=== PATIENT | male | born 1940 | race African-American/Black ===

== ENCOUNTER 2020-06-30 19:37 | Inpatient (IN) | payer OTHER ==
[~2020-06-30] VITALS: Ht 180.3 cm; Wt 76.1 kg
[2020-06-30 20:40] LABS: Basophils # (auto) 0 10 ^3/uL (0-0.2); Basophils % (auto) 0.4 % (0.0-2.0); Eosinophils # (auto) 0 10 ^3/uL (0-0.8); Eosinophils % (auto) 0.4 % (0.0-7.0); Hematocrit 34.2 % (41.0-53.0); Hemoglobin 11.5 g/dL (13.5-17.5); Lymphocytes % (auto) 24.3 % (10.0-50.0); Mean Corpuscular Hgb Conc. 33.7 g/dL (32.0-36.0); Mean Corpuscular Volume 83.1 fL (80.0-100.0); Monocytes # (auto) 0.4 10 ^3/uL (0-1.3); Monocytes % (auto) 8.7 % (0.0-12.0); Neutrophils # (auto) 2.8 10 ^3/uL (1.6-8.6); Neutrophils % (auto) 66.2 % (37.0-80.0); Nucleated Red Blood Cells % 0.1 %; Platelet Count (auto) 220 10^3/uL (140-450); Red Blood Cells 4.12 10^6/uL (4.5-5.90); Red Cell Distribution Width 16.2 % (11.8-14.3); White Blood Cell 4.2 10^3/uL (4.4-10.8)
[2020-06-30 20:46] LABS: INR 1.03 (0.9-1.15); Partial Thromboplastin Time 34.5 sec (23.0-31.2)
[2020-06-30 20:49] LABS: Albumin 3.2 g/dL (3.4-5.0); Anion Gap 7 (5-15); Blood Alcohol < 3.0 mg/dL (0-5); Calcium 8.1 mg/dL (8.5-10.1); Carbon Dioxide 24 mmol/L (21-32); Chloride 107 mmol/L (98-107); Glucose 106 mg/dL (74-106); Potassium 4.2 mmol/L (3.5-5.1); Sodium 138 mmol/L (136-145)
[2020-06-30 20:52] LABS: Alanine Aminotransferase 25 U/L (16-61); Aspartate Aminotransferase 17 U/L (15-37); BUN/Creatinine Ratio 13.2; Bilirubin, Total 0.4 mg/dL (0.2-1.0); Blood Urea Nitrogen 20 mg/dL (7-18); GFR African American 57 mL/min; GFR Non-African American 47 mL/min; Total Protein 6.8 g/dL (6.4-8.2)
[2020-06-30 20:54] LABS: Alkaline Phosphatase 87 U/L (45-117)
[2020-06-30 21:44] LABS: Urine Bacteria FEW /hpf (None Seen); Urine Blood 1+ /uL (Negative); Urine Mucus FEW (None Seen); Urine Specific Gravity 1.015 (1.001-1.035); Urine WBC 87 /hpf (0 - 3)
[2020-06-30] MEDS ORDERED: cefTRIAXone 1GM/50ML D5W 50 ML IV ONE (23:15)
[2020-06-30] MEDS ORDERED: ENOXAPARIN SOD 80 MG/0.8ML SYRINGE SC ONE (23:15)
[2020-06-30] MEDS ORDERED: HALOPERIDOL LACTATE 5 MG/ML INJ VIAL IM ONE (23:45)
[2020-07-01] MEDS ORDERED: HALOPERIDOL LACTATE 5 MG/ML INJ VIAL ONE (00:30)
[2020-07-01] MEDS ORDERED: MORPHINE SULF INJ 2 MG/ML SYRINGE 1ML IV PRN (00:30)
[2020-07-01] MEDS ORDERED: NITROGLYCERIN 0.4 MG SL TAB SL PRN (00:30)
[2020-07-01] MEDS ORDERED: ACETAMINOPHEN 325 MG TAB PO PRN (00:30)
[2020-07-01] MEDS ORDERED: ONDANSETRON HCL 4 MG/2 ML VIAL IV PRN (00:30)
[2020-07-01] MEDS ORDERED: hydrALAZINE HCL 20 MG/ML VL IV PRN (00:30)
[2020-07-01] MEDS ORDERED: SODIUM CHLORIDE 0.9% 500 ML IV ONE (00:30)
[2020-07-01] MEDS ORDERED: LORazepam 2MG/ML-1ML VIAL IV PRN (00:30)
[2020-07-01] MEDS: SODIUM CHLORIDE 0.9% 1,000 ML IV SCH ×2 (00:59→13:50)
[2020-07-01] MEDS ORDERED: HALOPERIDOL LACTATE 5 MG/ML INJ VIAL IM ONE (01:00)
[2020-07-01] MEDS: ENOXAPARIN SOD 80 MG/0.8ML SYRINGE SC SCH ×2 (09:32→22:29)
[2020-07-01] MEDS: PANTOPRAZOLE 40 MG TAB PO SCH (09:32)
[2020-07-01] MEDS: cefTRIAXone 1GM/50ML D5W 50 ML IV SCH (09:32)
[2020-07-01] MEDS ORDERED: TAMS0.4C36 PO (10:31)
[2020-07-01 11:59] LABS: Basophils # (auto) 0 10 ^3/uL (0-0.2); Basophils % (auto) 1.1 % (0.0-2.0); Eosinophils # (auto) 0 10 ^3/uL (0-0.8); Eosinophils % (auto) 0.7 % (0.0-7.0); Hematocrit 33.7 % (41.0-53.0); Hemoglobin 11.4 g/dL (13.5-17.5); Lymphocytes # (auto) 1.5 10 ^3/uL (0.4-5.4); Lymphocytes % (auto) 34.2 % (10.0-50.0); Mean Corpuscular Hemoglobin 28.3 pg (28.0-32.0); Mean Corpuscular Hgb Conc. 33.8 g/dL (32.0-36.0); Mean Corpuscular Volume 83.7 fL (80.0-100.0); Monocytes # (auto) 0.4 10 ^3/uL (0-1.3); Monocytes % (auto) 10.1 % (0.0-12.0); Neutrophils # (auto) 2.4 10 ^3/uL (1.6-8.6); Neutrophils % (auto) 53.9 % (37.0-80.0); Nucleated Red Blood Cells % 0.1 %; Platelet Count (auto) 213 10^3/uL (140-450); Red Blood Cells 4.02 10^6/uL (4.5-5.90); Red Cell Distribution Width 15.9 % (11.8-14.3); White Blood Cell 4.4 10^3/uL (4.4-10.8)
[2020-07-01 12:16] LABS: Albumin 2.9 g/dL (3.4-5.0); Anion Gap 9 (5-15); Blood Urea Nitrogen 18 mg/dL (7-18); Calcium 8.4 mg/dL (8.5-10.1); Carbon Dioxide 24 mmol/L (21-32); Chloride 109 mmol/L (98-107); Glucose 88 mg/dL (74-106); Magnesium 2.1 mg/dL (1.6-2.6); Potassium 4.1 mmol/L (3.5-5.1); Sodium 142 mmol/L (136-145)
[2020-07-01 12:23] LABS: Alanine Aminotransferase 23 U/L (16-61); Alkaline Phosphatase 79 U/L (45-117); Aspartate Aminotransferase 29 U/L (15-37); BUN/Creatinine Ratio 12.6; Bilirubin, Total 0.4 mg/dL (0.2-1.0); GFR African American 61 mL/min; GFR Non-African American 51 mL/min; Phosphorus 2.1 mg/dL (2.5-4.90); Total Protein 6.5 g/dL (6.4-8.2)
[2020-07-01] MEDS ORDERED: MAGNESIUM SULFATE 1GM/100ML 200 ML IV ONE (17:59)
[2020-07-01] MEDS: MAGNESIUM SULFATE 1GM/100ML 100 ML IV SCH ×2 (18:04→19:04)
[2020-07-01] MEDS: AMIODARONE HCL 200 MG TAB PO SCH (22:29)
[2020-07-01 23:30] VITALS: BP 151/99
[2020-07-02] VITALS (23 sets, daily range): BP systolic 123–160; BP diastolic 48–104
[2020-07-02 05:58] LABS: Basophils # (auto) 0 10 ^3/uL (0-0.2); Basophils % (auto) 0.6 % (0.0-2.0); Eosinophils # (auto) 0 10 ^3/uL (0-0.8); Eosinophils % (auto) 1.2 % (0.0-7.0); Hematocrit 33.1 % (41.0-53.0); Hemoglobin 11.3 g/dL (13.5-17.5); Lymphocytes # (auto) 1.5 10 ^3/uL (0.4-5.4); Lymphocytes % (auto) 39.7 % (10.0-50.0); Mean Corpuscular Hemoglobin 28.3 pg (28.0-32.0); Mean Corpuscular Volume 83.2 fL (80.0-100.0); Monocytes # (auto) 0.5 10 ^3/uL (0-1.3); Monocytes % (auto) 12.4 % (0.0-12.0); Neutrophils # (auto) 1.7 10 ^3/uL (1.6-8.6); Neutrophils % (auto) 46.1 % (37.0-80.0); Platelet Count (auto) 204 10^3/uL (140-450); Red Blood Cells 3.98 10^6/uL (4.5-5.90); Red Cell Distribution Width 15.6 % (11.8-14.3); White Blood Cell 3.8 10^3/uL (4.4-10.8)
[2020-07-02 06:22] LABS: BUN/Creatinine Ratio 12.7; Calcium 8.1 mg/dL (8.5-10.1)
[2020-07-02 06:24] LABS: Bilirubin, Total 0.5 mg/dL (0.2-1.0); Total Protein 6.6 g/dL (6.4-8.2)
[2020-07-02] MEDS: cefTRIAXone 1GM/50ML D5W 50 ML IV SCH (09:26)
[2020-07-02] MEDS: PANTOPRAZOLE 40 MG TAB PO SCH (09:53)
[2020-07-02] MEDS: ENOXAPARIN SOD 80 MG/0.8ML SYRINGE SC SCH ×2 (09:53→20:53)
[2020-07-02] MEDS: AMIODARONE HCL 200 MG TAB PO SCH (10:00)
[2020-07-02] MEDS: SODIUM CHLORIDE 0.9% 1,000 ML IV SCH ×2 (14:24)
[2020-07-03] VITALS (16 sets, daily range): BP systolic 133–161; BP diastolic 57–101
[2020-07-03] MEDS: cefTRIAXone 1GM/50ML D5W 50 ML IV SCH (09:39)
[2020-07-03] MEDS: PANTOPRAZOLE 40 MG TAB PO SCH (09:39)
[2020-07-03] MEDS: ENOXAPARIN SOD 80 MG/0.8ML SYRINGE SC SCH ×2 (09:39→21:51)
[2020-07-03] MEDS ORDERED: AMIODARONE HCL 200 MG TAB PO SCH (10:00)
[2020-07-03 13:26] LABS: Albumin 2.6 g/dL (3.4-5.0); Calcium 8.2 mg/dL (8.5-10.1); Magnesium 2.1 mg/dL (1.6-2.6); Potassium 3.9 mmol/L (3.5-5.1)
[2020-07-03 13:31] LABS: BUN/Creatinine Ratio 12.2; Bilirubin, Total 0.4 mg/dL (0.2-1.0); Total Protein 6.1 g/dL (6.4-8.2)
[2020-07-03] MEDS ORDERED: POTASSIUM CHL 20 Meq TABLET PO ONE (15:00)
[2020-07-04] VITALS (24 sets, daily range): BP systolic 89–154; BP diastolic 31–92
[2020-07-04] MEDS: PANTOPRAZOLE 40 MG TAB PO SCH (09:10)
[2020-07-04] MEDS: cefTRIAXone 1GM/50ML D5W 50 ML IV SCH (09:10)
[2020-07-04] MEDS: ENOXAPARIN SOD 80 MG/0.8ML SYRINGE SC SCH ×2 (09:10→21:52)
[2020-07-04] MEDS: AMIODARONE HCL 200 MG TAB PO SCH (10:00)
[2020-07-04] MEDS ORDERED: ATROPINE SULFATE 1 MG/1 ML VIAL ONE (17:56)
[2020-07-05] VITALS (16 sets, daily range): BP systolic 111–154; BP diastolic 34–92
[2020-07-05] MEDS: cefTRIAXone 1GM/50ML D5W 50 ML IV SCH (08:58)
[2020-07-05] MEDS: PANTOPRAZOLE 40 MG TAB PO SCH (08:59)
[2020-07-05] MEDS: ENOXAPARIN SOD 80 MG/0.8ML SYRINGE SC SCH ×2 (09:00→22:00)
[2020-07-05] MEDS: AMIODARONE HCL 200 MG TAB PO SCH (10:00)
[2020-07-05 11:16] LABS: BUN/Creatinine Ratio 15.1; Calcium 8.7 mg/dL (8.5-10.1); Potassium 3.9 mmol/L (3.5-5.1)
[2020-07-06] VITALS (20 sets, daily range): BP systolic 98–165; BP diastolic 53–88
[2020-07-06] MEDS: cefTRIAXone 1GM/50ML D5W 50 ML IV SCH (09:24)
[2020-07-06 09:54] LABS: INR 1.04 (0.9-1.15); Partial Thromboplastin Time 37.8 sec (23.0-31.2)
[2020-07-06 09:56] LABS: Basophils # (auto) 0 10 ^3/uL (0-0.2); Basophils % (auto) 0.7 % (0.0-2.0); Eosinophils # (auto) 0.1 10 ^3/uL (0-0.8); Eosinophils % (auto) 2.4 % (0.0-7.0); Lymphocytes # (auto) 1.4 10 ^3/uL (0.4-5.4); Lymphocytes % (auto) 40.1 % (10.0-50.0); Mean Corpuscular Hemoglobin 27.8 pg (28.0-32.0); Mean Corpuscular Hgb Conc. 33.2 g/dL (32.0-36.0); Mean Corpuscular Volume 83.5 fL (80.0-100.0); Monocytes # (auto) 0.5 10 ^3/uL (0-1.3); Monocytes % (auto) 13.6 % (0.0-12.0); Neutrophils # (auto) 1.5 10 ^3/uL (1.6-8.6); Neutrophils % (auto) 43.2 % (37.0-80.0); Nucleated Red Blood Cells % 0.1 %; Platelet Count (auto) 247 10^3/uL (140-450); Red Blood Cells 4.67 10^6/uL (4.5-5.90); White Blood Cell 3.5 10^3/uL (4.4-10.8)
[2020-07-06] MEDS: AMIODARONE HCL 200 MG TAB PO SCH (10:00)
[2020-07-06] MEDS: PANTOPRAZOLE 40 MG TAB PO SCH (10:00)
[2020-07-06] MEDS: ENOXAPARIN SOD 80 MG/0.8ML SYRINGE SC SCH ×2 (10:00→22:22)
[2020-07-06 11:24] LABS: Albumin 3.1 g/dL (3.4-5.0); Calcium 8.9 mg/dL (8.5-10.1); Potassium 4.4 mmol/L (3.5-5.1)
[2020-07-06 11:28] LABS: BUN/Creatinine Ratio 14.3; Bilirubin, Total 0.5 mg/dL (0.2-1.0); Total Protein 7.1 g/dL (6.4-8.2)
[2020-07-06] MEDS ORDERED: VANCOMYCIN 1GM/250ML 250 ML IV ONE ×2 (14:30→15:41)
[2020-07-06] MEDS ORDERED: LIDOCAINE 2%HCL (LOCAL ANESTH.) INJ 20ML MDV ONE (14:55)
[2020-07-06] MEDS ORDERED: VANCOMYCIN HCL 1000 MG VL ONE (15:41)
[2020-07-06] MEDS ORDERED: MIDAZOLAM HCL 1MG/1ML-2 ML VIAL ONE (15:41)
[2020-07-06] MEDS ORDERED: fentaNYL CITRATE 100 MCG/2 ML VL ONE (15:41)
[2020-07-06] MEDS ORDERED: ACETAMINOPHEN 325 MG TAB PO PRN (16:15)
[2020-07-06] MEDS ORDERED: HYDROcodone-ACET 5/325MG TAB PO PRN (16:15)
[2020-07-07 05:41] LABS: Calcium 8.9 mg/dL (8.5-10.1); Potassium 4.5 mmol/L (3.5-5.1)
[2020-07-07 05:42] LABS: BUN/Creatinine Ratio 17.7
[2020-07-07] MEDS: VANCOMYCIN 1GM/250ML 250 ML IV SCH ×2 (07:00→15:41)
[2020-07-07 08:00] VITALS: BP 167/87
[2020-07-07] MEDS: cefTRIAXone 1GM/50ML D5W 50 ML IV SCH (09:46)
[2020-07-07] MEDS: PANTOPRAZOLE 40 MG TAB PO SCH (09:47)
[2020-07-07] MEDS: AMIODARONE HCL 200 MG TAB PO SCH (09:47)
[2020-07-07] MEDS: ENOXAPARIN SOD 80 MG/0.8ML SYRINGE SC SCH (09:47)
[2020-07-07 12:00] VITALS: BP 110/55
[2020-07-07] MEDS: APIXABAN 5 MG TAB PO SCH (21:13)
[2020-07-07 22:00] VITALS: BP 140/95
[2020-07-08 05:00] VITALS: BP 156/94
[2020-07-08 07:14] LABS: Basophils # (auto) 0 10 ^3/uL (0-0.2); Basophils % (auto) 0.8 % (0.0-2.0); Eosinophils # (auto) 0 10 ^3/uL (0-0.8); Eosinophils % (auto) 0.6 % (0.0-7.0); Hematocrit 39.1 % (41.0-53.0); Hemoglobin 13.3 g/dL (13.5-17.5); Lymphocytes # (auto) 1.6 10 ^3/uL (0.4-5.4); Mean Corpuscular Hemoglobin 28.2 pg (28.0-32.0); Mean Corpuscular Volume 83.1 fL (80.0-100.0); Monocytes # (auto) 0.5 10 ^3/uL (0-1.3); Neutrophils # (auto) 2.7 10 ^3/uL (1.6-8.6); Neutrophils % (auto) 55.6 % (37.0-80.0); Nucleated Red Blood Cells % 0.1 %; Platelet Count (auto) 261 10^3/uL (140-450); Red Blood Cells 4.71 10^6/uL (4.5-5.90); Red Cell Distribution Width 15.7 % (11.8-14.3); White Blood Cell 4.8 10^3/uL (4.4-10.8)
[2020-07-08 07:57] LABS: BUN/Creatinine Ratio 15.4; Calcium 8.8 mg/dL (8.5-10.1); Potassium 4.2 mmol/L (3.5-5.1)
[2020-07-08] MEDS: cefTRIAXone 1GM/50ML D5W 50 ML IV SCH (08:14)
[2020-07-08 09:00] VITALS: BP 153/118
[2020-07-08] MEDS: APIXABAN 5 MG TAB PO SCH ×2 (09:28→22:05)
[2020-07-08] MEDS: AMIODARONE HCL 200 MG TAB PO SCH (09:28)
[2020-07-08] MEDS: PANTOPRAZOLE 40 MG TAB PO SCH (09:28)
[2020-07-08 13:00] VITALS: BP 153/83
[2020-07-08] MEDS ORDERED: AMIO200T33 PO (13:57)
[2020-07-08 16:23] VITALS: BP 153/83
[2020-07-08 17:00] VITALS: BP 127/83
[2020-07-08 22:00] VITALS: BP 140/79
[2020-07-09 05:00] VITALS: BP 166/98
[2020-07-09 09:00] VITALS: BP 164/97
[2020-07-09] MEDS: PANTOPRAZOLE 40 MG TAB PO SCH (09:45)
[2020-07-09] MEDS: AMIODARONE HCL 200 MG TAB PO SCH (09:45)
[2020-07-09] MEDS: APIXABAN 5 MG TAB PO SCH (09:45)
[2020-07-09 12:44] VITALS: BP 151/81
[2020-07-09 16:33] VITALS: BP 131/61
[2020-07-14] MEDS ORDERED: APIXABAN 5 MG TAB PO SCH (22:00)
== END 2020-07-09 20:14 | disposition home health service (06) | DRG 242 ==
LOC: EDBD 19:37 → ER 19:37 → TELE 19:38 → DOU IN ICU 07-01 23:00 → TELE-WESTW 07-07 16:29
PROVIDERS: ADMIT Nurse Practitioner; ATTEND Internal Medicine Nephrology
PROC: 0JH606Z Insertion of Pacemaker, Dual Chamber into Chest Subcutaneous Tissue and Fascia, Open Approach (ICD-10-PCS; principal; 2020-07-06)
PROC: 02HK3JZ Insertion of Pacemaker Lead into Right Ventricle, Percutaneous Approach (ICD-10-PCS; 2020-07-06)
PROC: 02H63JZ Insertion of Pacemaker Lead into Right Atrium, Percutaneous Approach (ICD-10-PCS; 2020-07-06)
DX: I49.5 Sick sinus syndrome (principal); N17.0 Acute kidney failure with tubular necrosis; I82.413 Acute embolism and thrombosis of femoral vein, bilateral; G93.40 Encephalopathy, unspecified; N39.0 Urinary tract infection, site not specified; E44.0 Moderate protein-calorie malnutrition; I47.2 Ventricular tachycardia; R62.7 Adult failure to thrive; D64.9 Anemia, unspecified; I12.9 Hypertensive chronic kidney disease with stage 1 through stage 4 chronic kidney disease, or unspecified chronic kidney disease; N18.31 Chronic kidney disease, stage 3a; N40.0 Benign prostatic hyperplasia without lower urinary tract symptoms; I48.91 Unspecified atrial fibrillation; Z86.73 Personal history of transient ischemic attack (TIA), and cerebral infarction without residual deficits; Z68.23 Body mass index [BMI] 23.0-23.9, adult; Z20.822 Contact with and (suspected) exposure to COVID-19
CPT/HCPCS: 33208; 36415; 70450; 71045; 78582; 80048; 80053; 80320; 81001; 83605; 83735; 84100; 84484; 85025; 85610; 85730; 87040; 87081; 87086; 87426; 93005; 93306; 93970; 96365; 96372; 97116; 97530; 99152; 99153; C1785; G0378; J0461; J0696; J2250

== ENCOUNTER 2020-11-19 18:06 | Inpatient (IN) | payer OTHER ==
[~2020-11-19] VITALS: Ht 188 cm; Wt 86.8 kg
[~2020-11-19 18:06] MED LIST: AMIO200T33 PO; TAMS0.4C36 PO
[2020-11-19 19:14] LABS: Basophils # (auto) 0 10 ^3/uL (0-0.2); Basophils % (auto) 0.7 % (0.0-2.0); Eosinophils # (auto) 0 10 ^3/uL (0-0.8); Eosinophils % (auto) 0.3 % (0.0-7.0); Hematocrit 37.5 % (41.0-53.0); Hemoglobin 12.5 g/dL (13.5-17.5); Lymphocytes # (auto) 0.8 10 ^3/uL (0.4-5.4); Lymphocytes % (auto) 13.5 % (10.0-50.0); Mean Corpuscular Hemoglobin 27.7 pg (28.0-32.0); Mean Corpuscular Hgb Conc. 33.4 g/dL (32.0-36.0); Monocytes # (auto) 0.6 10 ^3/uL (0-1.3); Monocytes % (auto) 9.9 % (0.0-12.0); Neutrophils # (auto) 4.3 10 ^3/uL (1.6-8.6); Neutrophils % (auto) 75.6 % (37.0-80.0); Nucleated Red Blood Cells % 0.1 %; Red Blood Cells 4.51 10^6/uL (4.5-5.90); Red Cell Distribution Width 15.2 % (11.8-14.3); White Blood Cell 5.7 10^3/uL (4.4-10.8)
[2020-11-19 19:35] LABS: Albumin 2.7 g/dL (3.4-5.0); Anion Gap 18 (5-15); BUN/Creatinine Ratio 19.3; Blood Urea Nitrogen 54 mg/dL (7-18); Calcium 8.3 mg/dL (8.5-10.1); Carbon Dioxide 18 mmol/L (21-32); Chloride 111 mmol/L (98-107); GFR African American 28 mL/min; GFR Non-African American 23 mL/min; Glucose 80 mg/dL (74-106); Potassium 3.7 mmol/L (3.5-5.1); Sodium 147 mmol/L (136-145)
[2020-11-19 19:40] LABS: Alanine Aminotransferase 16 U/L (16-61); Alkaline Phosphatase 70 U/L (45-117); Aspartate Aminotransferase 26 U/L (15-37); Total Protein 7.2 g/dL (6.4-8.2)
[2020-11-19] MEDS ORDERED: HYDROcodone-ACET 5/325MG TAB PO PRN (23:30)
[2020-11-19] MEDS ORDERED: ACETAMINOPHEN 325 MG TAB PO PRN (23:30)
[2020-11-19] MEDS ORDERED: ACETAMINOPHEN 500 MG TAB PO PRN (23:30)
[2020-11-19] MEDS ORDERED: MORPHINE SULFATE INJECTION 2 MG/ML SYRG IV PRN (23:30)
[2020-11-19] MEDS ORDERED: ONDANSETRON HCL 4 MG/2 ML VIAL IV PRN (23:30)
[2020-11-19] MEDS ORDERED: NITROGLYCERIN 0.4 MG SL TAB SL PRN (23:30)
[2020-11-19] MEDS ORDERED: DOCUSATE SOD 100 MG CAP PO PRN (23:30)
[2020-11-20] MEDS ORDERED: ALBUMIN 25% 50 ML IV ONE
[2020-11-20 00:12] VITALS: BP 118/90
[2020-11-20 00:42] LABS: Urine Bacteria MANY /hpf (None Seen); Urine Blood 1+ /uL (Negative); Urine Mucus FEW (None Seen); Urine Specific Gravity 1.015 (1.001-1.035); Urine WBC 299 /hpf (0 - 3); Urine WBC Clumps PRESENT /hpf (None Seen)
[2020-11-20] MEDS: FREE WATER PO SCH ×6 (02:02→23:12)
[2020-11-20 04:27] LABS: Basophils # (auto) 0 10 ^3/uL (0-0.2); Basophils % (auto) 0.3 % (0.0-2.0); Eosinophils # (auto) 0 10 ^3/uL (0-0.8); Eosinophils % (auto) 0.8 % (0.0-7.0); Hematocrit 38.2 % (41.0-53.0); Hemoglobin 12.9 g/dL (13.5-17.5); Lymphocytes # (auto) 0.9 10 ^3/uL (0.4-5.4); Lymphocytes % (auto) 17.2 % (10.0-50.0); Mean Corpuscular Hemoglobin 27.7 pg (28.0-32.0); Mean Corpuscular Hgb Conc. 33.9 g/dL (32.0-36.0); Mean Corpuscular Volume 81.9 fL (80.0-100.0); Monocytes # (auto) 0.5 10 ^3/uL (0-1.3); Monocytes % (auto) 9.8 % (0.0-12.0); Neutrophils # (auto) 3.7 10 ^3/uL (1.6-8.6); Neutrophils % (auto) 71.9 % (37.0-80.0); Red Blood Cells 4.67 10^6/uL (4.5-5.90); Red Cell Distribution Width 15.1 % (11.8-14.3); White Blood Cell 5.1 10^3/uL (4.4-10.8)
[2020-11-20 04:44] LABS: Albumin 2.8 g/dL (3.4-5.0); Calcium 8.5 mg/dL (8.5-10.1); Potassium 3.8 mmol/L (3.5-5.1)
[2020-11-20 04:46] LABS: Total Protein 7.2 g/dL (6.4-8.2)
[2020-11-20] MEDS: ALBUTEROL SULF HFA 90MCG INH 200DOSE IN PRN (07:09)
[2020-11-20] MEDS: BUDESONIDE (INHALATION) 180 MCG IH IN SCH ×2 (07:09→22:00)
[2020-11-20 09:00] VITALS: BP 111/79
[2020-11-20 10:00] VITALS: BP 111/79
[2020-11-20] MEDS: DexAMETHasone SOD PHOS 10MG/1ML VIAL INJ IV SCH (10:26)
[2020-11-20] MEDS: FAMOTIDINE (10MG/ML) 2ML VL IV SCH (10:26)
[2020-11-20] MEDS: DOXYCYCLINE 100MG/250ML 250 ML IV SCH ×2 (10:26→23:12)
[2020-11-20] MEDS: MULTIPLE VITAMIN TAB PO SCH (10:27)
[2020-11-20] MEDS: ZINC SULFATE 220mg CAP or TAB PO SCH (10:27)
[2020-11-20] MEDS: AMIODARONE HCL 200 MG TAB PO SCH ×2 (10:27→23:13)
[2020-11-20] MEDS: ASCORBIC ACID 1,000 MG TAB PO SCH (10:27)
[2020-11-20] MEDS: CHOLECALCIFEROL (VITD3) 2,000 UNIT CAP/TAB PO SCH (10:28)
[2020-11-20] MEDS: HEPARIN SODIUM (PORCINE) 5000 UNITS/ML 1ML VIAL SC SCH ×2 (10:47→23:14)
[2020-11-20 13:00] VITALS: BP 116/87
[2020-11-20] MEDS: SOD CHL 0.45% 1,000 ML IV SCH (13:00)
[2020-11-20] MEDS ORDERED: LACTULOSE 20Gm/30ML SOLN PO PRN (16:15)
[2020-11-20 17:00] VITALS: BP 122/83
[2020-11-20] MEDS: TAMSULOSIN HYDROCHLORIDE 0.4 MG CAP PO SCH (17:44)
[2020-11-20 22:00] VITALS: BP 133/99
[2020-11-20] MEDS: DOCUSATE SOD 100 MG CAP PO SCH (23:12)
[2020-11-21] MEDS: ALBUTEROL SULF HFA 90MCG INH 200DOSE IN PRN ×3 (01:16→21:31)
[2020-11-21] MEDS: FREE WATER PO SCH ×3 (02:00→10:11)
[2020-11-21 05:00] VITALS: BP 128/100
[2020-11-21] MEDS: SOD CHL 0.45% 1,000 ML IV SCH ×2 (05:28→15:40)
[2020-11-21] MEDS: BUDESONIDE (INHALATION) 180 MCG IH IN SCH ×2 (07:22→21:31)
[2020-11-21 07:42] LABS: Basophils # (auto) 0 10 ^3/uL (0-0.2); Basophils % (auto) 0.3 % (0.0-2.0); Eosinophils # (auto) 0 10 ^3/uL (0-0.8); Eosinophils % (auto) 0.2 % (0.0-7.0); Hematocrit 38.3 % (41.0-53.0); Hemoglobin 12.9 g/dL (13.5-17.5); Lymphocytes # (auto) 0.6 10 ^3/uL (0.4-5.4); Lymphocytes % (auto) 8.4 % (10.0-50.0); Mean Corpuscular Hemoglobin 28.2 pg (28.0-32.0); Mean Corpuscular Hgb Conc. 33.7 g/dL (32.0-36.0); Mean Corpuscular Volume 83.5 fL (80.0-100.0); Monocytes # (auto) 0.4 10 ^3/uL (0-1.3); Monocytes % (auto) 5.6 % (0.0-12.0); Neutrophils # (auto) 6.2 10 ^3/uL (1.6-8.6); Neutrophils % (auto) 85.5 % (37.0-80.0); Nucleated Red Blood Cells % 0.2 %; Red Blood Cells 4.58 10^6/uL (4.5-5.90); Red Cell Distribution Width 15.1 % (11.8-14.3); White Blood Cell 7.3 10^3/uL (4.4-10.8)
[2020-11-21 07:57] LABS: Albumin 2.6 g/dL (3.4-5.0); Calcium 8.7 mg/dL (8.5-10.1); Magnesium 2.5 mg/dL (1.6-2.6); Potassium 3.7 mmol/L (3.5-5.1)
[2020-11-21 08:00] LABS: Bilirubin, Total 0.8 mg/dL (0.2-1.0); Total Protein 7.1 g/dL (6.4-8.2)
[2020-11-21 08:04] LABS: INR 1.09 (0.9-1.15)
[2020-11-21 08:10] LABS: CRP High Sensitivity 6.98 mg/dL (< 0.3)
[2020-11-21 08:26] LABS: BUN/Creatinine Ratio 19.1
[2020-11-21 09:00] VITALS: BP 112/75
[2020-11-21] MEDS: DOXYCYCLINE 100MG/250ML 250 ML IV SCH ×2 (10:11→22:08)
[2020-11-21] MEDS: FAMOTIDINE (10MG/ML) 2ML VL IV SCH (10:11)
[2020-11-21] MEDS: DexAMETHasone SOD PHOS 10MG/1ML VIAL INJ IV SCH (10:11)
[2020-11-21] MEDS: DOCUSATE SOD 100 MG CAP PO SCH ×2 (10:12→22:09)
[2020-11-21] MEDS: ASCORBIC ACID 1,000 MG TAB PO SCH (10:12)
[2020-11-21] MEDS: AMIODARONE HCL 200 MG TAB PO SCH ×2 (10:12→22:09)
[2020-11-21] MEDS: MULTIPLE VITAMIN TAB PO SCH (10:12)
[2020-11-21] MEDS: ZINC SULFATE 220mg CAP or TAB PO SCH (10:12)
[2020-11-21] MEDS: CHOLECALCIFEROL (VITD3) 2,000 UNIT CAP/TAB PO SCH (10:13)
[2020-11-21 13:13] VITALS: BP 100/44
[2020-11-21 17:00] VITALS: BP 128/85
[2020-11-21] MEDS: TAMSULOSIN HYDROCHLORIDE 0.4 MG CAP PO SCH (17:48)
[2020-11-21 21:12] LABS: Cholesterol 132 mg/dL (< 200)
[2020-11-21 21:14] LABS: HDL Cholesterol 34 mg/dL (40-59); LDL Cholesterol 85 mg/dL (< 100); Triglycerides 91 mg/dL (< 150)
[2020-11-21] MEDS ORDERED: LOSA-69 PO (21:27)
[2020-11-21] MEDS ORDERED: ATOR80TA PO (21:27)
[2020-11-21] MEDS ORDERED: CLOP75TA28 PO (21:27)
[2020-11-21 22:00] VITALS: BP 120/87
[2020-11-21] MEDS: ATORVASTATIN 20 MG TAB PO SCH (22:10)
[2020-11-22] MEDS: SOD CHL 0.45% 1,000 ML IV SCH ×2 (04:03→18:20)
[2020-11-22 05:15] VITALS: BP 147/93
[2020-11-22 06:51] LABS: Basophils # (auto) 0 10 ^3/uL (0-0.2); Basophils % (auto) 0.2 % (0.0-2.0); Eosinophils # (auto) 0 10 ^3/uL (0-0.8); Hematocrit 34.6 % (41.0-53.0); Hemoglobin 11.7 g/dL (13.5-17.5); Lymphocytes # (auto) 0.6 10 ^3/uL (0.4-5.4); Lymphocytes % (auto) 6.9 % (10.0-50.0); Mean Corpuscular Hemoglobin 27.6 pg (28.0-32.0); Mean Corpuscular Volume 81.2 fL (80.0-100.0); Monocytes # (auto) 0.4 10 ^3/uL (0-1.3); Monocytes % (auto) 5.1 % (0.0-12.0); Neutrophils # (auto) 7.8 10 ^3/uL (1.6-8.6); Neutrophils % (auto) 87.8 % (37.0-80.0); Nucleated Red Blood Cells % 0.1 %; Red Blood Cells 4.26 10^6/uL (4.5-5.90); White Blood Cell 8.8 10^3/uL (4.4-10.8)
[2020-11-22] MEDS: BUDESONIDE (INHALATION) 180 MCG IH IN SCH ×2 (07:04→22:00)
[2020-11-22] MEDS: ALBUTEROL SULF HFA 90MCG INH 200DOSE IN PRN ×2 (07:04→22:40)
[2020-11-22 07:17] LABS: Chloride 109 mmol/L (98-107); Potassium 3.8 mmol/L (3.5-5.1); Sodium 138 mmol/L (136-145)
[2020-11-22 07:22] LABS: Anion Gap 8 (5-15); Blood Urea Nitrogen 31 mg/dL (7-18); Calcium 7.8 mg/dL (8.5-10.1); Carbon Dioxide 21 mmol/L (21-32); GFR African American 62 mL/min; GFR Non-African American 51 mL/min; Glucose 147 mg/dL (74-106)
[2020-11-22 09:00] VITALS: BP 112/71
[2020-11-22] MEDS: DexAMETHasone SOD PHOS 10MG/1ML VIAL INJ IV SCH (10:11)
[2020-11-22] MEDS: DOXYCYCLINE 100MG/250ML 250 ML IV SCH ×2 (10:11→21:30)
[2020-11-22] MEDS: ZINC SULFATE 220mg CAP or TAB PO SCH (10:12)
[2020-11-22] MEDS: AMIODARONE HCL 200 MG TAB PO SCH ×2 (10:12→21:31)
[2020-11-22] MEDS: DOCUSATE SOD 100 MG CAP PO SCH ×2 (10:12→21:31)
[2020-11-22] MEDS: MULTIPLE VITAMIN TAB PO SCH (10:13)
[2020-11-22] MEDS: ASCORBIC ACID 1,000 MG TAB PO SCH (10:13)
[2020-11-22] MEDS: CHOLECALCIFEROL (VITD3) 2,000 UNIT CAP/TAB PO SCH (10:13)
[2020-11-22] MEDS: ASPirin-EC 81 mg tab PO SCH (10:13)
[2020-11-22 13:00] VITALS: BP 137/75
[2020-11-22 17:27] VITALS: BP 123/75
[2020-11-22] MEDS: TAMSULOSIN HYDROCHLORIDE 0.4 MG CAP PO SCH (18:02)
[2020-11-22] MEDS: ATORVASTATIN 20 MG TAB PO SCH (21:32)
[2020-11-22 22:00] VITALS: BP 116/84
[2020-11-23 01:32] VITALS: BP 116/84
[2020-11-23 05:00] VITALS: BP 139/87
[2020-11-23 06:51] LABS: Basophils # (auto) 0 10 ^3/uL (0-0.2); Eosinophils # (auto) 0 10 ^3/uL (0-0.8); Hematocrit 32.8 % (41.0-53.0); Hemoglobin 11.5 g/dL (13.5-17.5); Lymphocytes # (auto) 0.7 10 ^3/uL (0.4-5.4); Lymphocytes % (auto) 9.3 % (10.0-50.0); Mean Corpuscular Hemoglobin 28.5 pg (28.0-32.0); Mean Corpuscular Volume 81.3 fL (80.0-100.0); Monocytes # (auto) 0.5 10 ^3/uL (0-1.3); Monocytes % (auto) 6.1 % (0.0-12.0); Neutrophils # (auto) 6.6 10 ^3/uL (1.6-8.6); Neutrophils % (auto) 84.6 % (37.0-80.0); Nucleated Red Blood Cells % 0.1 %; Red Blood Cells 4.03 10^6/uL (4.5-5.90); Red Cell Distribution Width 14.6 % (11.8-14.3); White Blood Cell 7.8 10^3/uL (4.4-10.8)
[2020-11-23 07:08] LABS: Albumin 2.1 g/dL (3.4-5.0); Calcium 7.8 mg/dL (8.5-10.1); Potassium 3.4 mmol/L (3.5-5.1)
[2020-11-23 07:12] LABS: Bilirubin, Total 0.4 mg/dL (0.2-1.0); Total Protein 5.8 g/dL (6.4-8.2)
[2020-11-23 07:16] LABS: BUN/Creatinine Ratio 22.3
[2020-11-23 07:21] LABS: CRP High Sensitivity 1.34 mg/dL (< 0.3)
[2020-11-23 09:00] VITALS: BP 105/73
[2020-11-23] MEDS: ALBUTEROL SULF HFA 90MCG INH 200DOSE IN PRN ×2 (09:30→20:06)
[2020-11-23] MEDS: BUDESONIDE (INHALATION) 180 MCG IH IN SCH ×2 (09:30→20:06)
[2020-11-23] MEDS: DOXYCYCLINE 100MG/250ML 250 ML IV SCH (09:32)
[2020-11-23] MEDS: DexAMETHasone SOD PHOS 10MG/1ML VIAL INJ IV SCH (09:32)
[2020-11-23] MEDS: ZINC SULFATE 220mg CAP or TAB PO SCH (09:32)
[2020-11-23] MEDS: AMIODARONE HCL 200 MG TAB PO SCH ×2 (09:33→22:13)
[2020-11-23] MEDS: FINASTERIDE 5 MG TAB PO SCH (09:33)
[2020-11-23] MEDS: MULTIPLE VITAMIN TAB PO SCH (09:33)
[2020-11-23] MEDS: CHOLECALCIFEROL (VITD3) 2,000 UNIT CAP/TAB PO SCH (09:33)
[2020-11-23] MEDS: ASPirin-EC 81 mg tab PO SCH (09:33)
[2020-11-23] MEDS: DOCUSATE SOD 100 MG CAP PO SCH ×2 (09:33→22:13)
[2020-11-23] MEDS: ASCORBIC ACID 1,000 MG TAB PO SCH (09:33)
[2020-11-23 10:04] LABS: Folate (Folic Acid) 10.27 ng/mL (5.38-24)
[2020-11-23] MEDS ORDERED: POTASSIUM CHL 10 Meq TABLET PO ONE (11:45)
[2020-11-23 13:00] VITALS: BP 110/78
[2020-11-23] MEDS: SOD CHL 0.45% 1,000 ML IV SCH ×2 (14:33→22:12)
[2020-11-23] MEDS: TAMSULOSIN HYDROCHLORIDE 0.4 MG CAP PO SCH (16:57)
[2020-11-23 17:25] VITALS: BP 125/72
[2020-11-23] MEDS ORDERED: CYANOCOBALAMIN (B-12) 1000 MCG/1 ML VIAL IM ONE (19:45)
[2020-11-23 22:00] VITALS: BP 114/57
[2020-11-23] MEDS: DOXYCYCLINE 100 MG TAB/CAP PO SCH (22:12)
[2020-11-23] MEDS: ATORVASTATIN 20 MG TAB PO SCH (22:13)
[2020-11-24 05:00] VITALS: BP 134/91
[2020-11-24 07:00] LABS: Calcium 7.7 mg/dL (8.5-10.1); Potassium 3.9 mmol/L (3.5-5.1)
[2020-11-24] MEDS: BUDESONIDE (INHALATION) 180 MCG IH IN SCH ×2 (08:07→19:41)
[2020-11-24] MEDS: ALBUTEROL SULF HFA 90MCG INH 200DOSE IN PRN ×2 (08:07→19:41)
[2020-11-24 09:00] VITALS: BP 124/70
[2020-11-24] MEDS: FINASTERIDE 5 MG TAB PO SCH (09:29)
[2020-11-24] MEDS: DexAMETHasone SOD PHOS 10MG/1ML VIAL INJ IV SCH (09:29)
[2020-11-24] MEDS: ASCORBIC ACID 1,000 MG TAB PO SCH (09:30)
[2020-11-24] MEDS: ZINC SULFATE 220mg CAP or TAB PO SCH (09:30)
[2020-11-24] MEDS: AMIODARONE HCL 200 MG TAB PO SCH ×2 (09:30→21:56)
[2020-11-24] MEDS: DOCUSATE SOD 100 MG CAP PO SCH ×2 (09:31→22:02)
[2020-11-24] MEDS: MULTIPLE VITAMIN TAB PO SCH (09:31)
[2020-11-24] MEDS: ASPirin-EC 81 mg tab PO SCH (09:31)
[2020-11-24] MEDS: DOXYCYCLINE 100 MG TAB/CAP PO SCH ×2 (09:31→21:56)
[2020-11-24] MEDS: CHOLECALCIFEROL (VITD3) 2,000 UNIT CAP/TAB PO SCH (09:31)
[2020-11-24] MEDS: CYANOCOBALAMIN 500 MCG TAB PO SCH (09:31)
[2020-11-24] MEDS: SOD CHL 0.45% 1,000 ML IV SCH ×2 (13:21→23:55)
[2020-11-24 17:00] VITALS: BP 110/71
[2020-11-24] MEDS: TAMSULOSIN HYDROCHLORIDE 0.4 MG CAP PO SCH (18:00)
[2020-11-24 20:00] VITALS: BP 131/75
[2020-11-24] MEDS: ATORVASTATIN 20 MG TAB PO SCH (21:57)
[2020-11-24 22:00] VITALS: BP 131/75
[2020-11-25 05:00] VITALS: BP 129/85
[2020-11-25 08:37] VITALS: BP 141/87
[2020-11-25] MEDS: DexAMETHasone SOD PHOS 10MG/1ML VIAL INJ IV SCH (10:21)
[2020-11-25] MEDS: ZINC SULFATE 220mg CAP or TAB PO SCH (10:22)
[2020-11-25] MEDS: MULTIPLE VITAMIN TAB PO SCH (10:22)
[2020-11-25] MEDS: CHOLECALCIFEROL (VITD3) 2,000 UNIT CAP/TAB PO SCH (10:22)
[2020-11-25] MEDS: DOCUSATE SOD 100 MG CAP PO SCH ×2 (10:22→21:57)
[2020-11-25] MEDS: FINASTERIDE 5 MG TAB PO SCH (10:22)
[2020-11-25] MEDS: CYANOCOBALAMIN 500 MCG TAB PO SCH (10:22)
[2020-11-25] MEDS: AMIODARONE HCL 200 MG TAB PO SCH ×2 (10:23→21:56)
[2020-11-25] MEDS: ASPirin-EC 81 mg tab PO SCH (10:23)
[2020-11-25] MEDS: DOXYCYCLINE 100 MG TAB/CAP PO SCH ×2 (10:23→21:56)
[2020-11-25] MEDS: ASCORBIC ACID 1,000 MG TAB PO SCH (10:23)
[2020-11-25] MEDS: BUDESONIDE (INHALATION) 180 MCG IH IN SCH ×2 (12:21→20:36)
[2020-11-25] MEDS: ALBUTEROL SULF HFA 90MCG INH 200DOSE IN PRN ×2 (12:21→20:36)
[2020-11-25 13:00] VITALS: BP 125/71
[2020-11-25 16:55] VITALS: BP 118/71
[2020-11-25] MEDS: TAMSULOSIN HYDROCHLORIDE 0.4 MG CAP PO SCH (17:57)
[2020-11-25 20:00] VITALS: BP 109/64
[2020-11-25] MEDS: ATORVASTATIN 20 MG TAB PO SCH (21:57)
[2020-11-25 22:00] VITALS: BP 109/64
[2020-11-26 05:00] VITALS: BP 142/75
[2020-11-26] MEDS: ALBUTEROL SULF HFA 90MCG INH 200DOSE IN PRN ×2 (07:55→21:54)
[2020-11-26] MEDS: BUDESONIDE (INHALATION) 180 MCG IH IN SCH ×2 (07:55→21:54)
[2020-11-26 08:39] VITALS: BP 125/71
[2020-11-26] MEDS: DOCUSATE SOD 100 MG CAP PO SCH ×2 (09:29→22:09)
[2020-11-26] MEDS: DexAMETHasone 4 MG TAB PO SCH (09:29)
[2020-11-26] MEDS: FINASTERIDE 5 MG TAB PO SCH (09:29)
[2020-11-26] MEDS: ASCORBIC ACID 1,000 MG TAB PO SCH (09:30)
[2020-11-26] MEDS: ZINC SULFATE 220mg CAP or TAB PO SCH (09:30)
[2020-11-26] MEDS: ASPirin-EC 81 mg tab PO SCH (09:30)
[2020-11-26] MEDS: CYANOCOBALAMIN 500 MCG TAB PO SCH (09:30)
[2020-11-26] MEDS: AMIODARONE HCL 200 MG TAB PO SCH ×2 (09:30→22:10)
[2020-11-26] MEDS: CHOLECALCIFEROL (VITD3) 2,000 UNIT CAP/TAB PO SCH (09:30)
[2020-11-26] MEDS: MULTIPLE VITAMIN TAB PO SCH (09:30)
[2020-11-26] MEDS: DOXYCYCLINE 100 MG TAB/CAP PO SCH ×2 (09:30→22:10)
[2020-11-26 13:00] VITALS: BP 125/77
[2020-11-26 17:27] VITALS: BP 115/65
[2020-11-26] MEDS: TAMSULOSIN HYDROCHLORIDE 0.4 MG CAP PO SCH (18:12)
[2020-11-26 22:00] VITALS: BP 135/75
[2020-11-26] MEDS: ATORVASTATIN 20 MG TAB PO SCH (22:10)
[2020-11-27 04:30] VITALS: BP 148/83
[2020-11-27] MEDS: ALBUTEROL SULF HFA 90MCG INH 200DOSE IN PRN ×3 (06:56→22:34)
[2020-11-27] MEDS: BUDESONIDE (INHALATION) 180 MCG IH IN SCH ×3 (06:56→22:34)
[2020-11-27 09:00] VITALS: BP 103/64
[2020-11-27] MEDS: CHOLECALCIFEROL (VITD3) 2,000 UNIT CAP/TAB PO SCH (10:00)
[2020-11-27] MEDS: ZINC SULFATE 220mg CAP or TAB PO SCH (10:41)
[2020-11-27] MEDS: DOCUSATE SOD 100 MG CAP PO SCH ×2 (10:41→21:30)
[2020-11-27] MEDS: DexAMETHasone 4 MG TAB PO SCH (10:42)
[2020-11-27] MEDS: AMIODARONE HCL 200 MG TAB PO SCH ×2 (10:42→21:30)
[2020-11-27] MEDS: ASPirin-EC 81 mg tab PO SCH (10:43)
[2020-11-27] MEDS: MULTIPLE VITAMIN TAB PO SCH (10:43)
[2020-11-27] MEDS: CYANOCOBALAMIN 500 MCG TAB PO SCH (10:44)
[2020-11-27] MEDS: ASCORBIC ACID 1,000 MG TAB PO SCH (10:44)
[2020-11-27] MEDS: DOXYCYCLINE 100 MG TAB/CAP PO SCH ×2 (10:44→21:31)
[2020-11-27] MEDS: FINASTERIDE 5 MG TAB PO SCH (10:44)
[2020-11-27 13:00] VITALS: BP 119/74
[2020-11-27] MEDS ORDERED: LORazepam 2MG/ML-1ML VIAL IV ONE (16:00)
[2020-11-27 17:00] VITALS: BP 119/67
[2020-11-27] MEDS: TAMSULOSIN HYDROCHLORIDE 0.4 MG CAP PO SCH (17:12)
[2020-11-27] MEDS: ATORVASTATIN 20 MG TAB PO SCH (21:30)
[2020-11-27 22:00] VITALS: BP 126/76
[2020-11-28 04:30] VITALS: BP 144/86
[2020-11-28] MEDS: ALBUTEROL SULF HFA 90MCG INH 200DOSE IN PRN (07:47)
[2020-11-28 08:43] VITALS: BP 136/80
[2020-11-28] MEDS: ZINC SULFATE 220mg CAP or TAB PO SCH (09:48)
[2020-11-28] MEDS: AMIODARONE HCL 200 MG TAB PO SCH (09:48)
[2020-11-28] MEDS: DOCUSATE SOD 100 MG CAP PO SCH (09:48)
[2020-11-28] MEDS: ASCORBIC ACID 1,000 MG TAB PO SCH (09:49)
[2020-11-28] MEDS: CYANOCOBALAMIN 500 MCG TAB PO SCH (09:49)
[2020-11-28] MEDS: FINASTERIDE 5 MG TAB PO SCH (09:49)
[2020-11-28] MEDS: ASPirin-EC 81 mg tab PO SCH (09:49)
[2020-11-28] MEDS: MULTIPLE VITAMIN TAB PO SCH (09:49)
[2020-11-28] MEDS: CHOLECALCIFEROL (VITD3) 2,000 UNIT CAP/TAB PO SCH (09:50)
[2020-11-28] MEDS ORDERED: DexAMETHasone 4 MG TAB PO SCH (10:00)
[2020-11-28 13:00] VITALS: BP 121/69
[2020-11-28 16:06] VITALS: BP 146/67
== END 2020-11-28 16:09 | disposition hospice, home (50) | DRG 177 ==
LOC: ER 18:06 → EDBD 18:06 → EDUNIT# 18:06 → TELE 23:30 → TELE-EAST 11-20 09:30 → EAST 11-23 11:24
PROVIDERS: ADMIT Nurse Practitioner Family; ATTEND Internal Medicine
DX: U07.1 COVID-19 (principal); N17.0 Acute kidney failure with tubular necrosis; J12.82 Pneumonia due to coronavirus disease 2019; G92 Toxic encephalopathy; N39.0 Urinary tract infection, site not specified; E87.0 Hyperosmolality and hypernatremia; E87.1 Hypo-osmolality and hyponatremia; I48.20 Chronic atrial fibrillation, unspecified; E88.09 Other disorders of plasma-protein metabolism, not elsewhere classified; E55.9 Vitamin D deficiency, unspecified; Z96.642 Presence of left artificial hip joint; I12.9 Hypertensive chronic kidney disease with stage 1 through stage 4 chronic kidney disease, or unspecified chronic kidney disease; N18.31 Chronic kidney disease, stage 3a; I49.5 Sick sinus syndrome; N40.0 Benign prostatic hyperplasia without lower urinary tract symptoms; D64.9 Anemia, unspecified; F03.90 Unspecified dementia, unspecified severity, without behavioral disturbance, psychotic disturbance, mood disturbance, and anxiety; I48.0 Paroxysmal atrial fibrillation; N20.0 Calculus of kidney; Z79.82 Long term (current) use of aspirin; Z79.899 Other long term (current) drug therapy; Z86.73 Personal history of transient ischemic attack (TIA), and cerebral infarction without residual deficits; Z95.0 Presence of cardiac pacemaker
CPT/HCPCS: 36415; 70450; 71045; 74176; 76775; 80048; 80053; 80061; 81001; 82306; 82570; 82607; 82728; 82746; 83036; 83605; 83615; 83735; 83970; 84100; 84154; 84156; 84300; 84443; 84484; 85025; 85379; 85610; 86141; 87426; 93005; 93970; 94640; 95819; 96365; 97110; 97163; 97530; G0378; J1100; J3490

== ENCOUNTER 2022-07-01 13:30 | Inpatient (IN) | payer OTHER ==
[~2022-07-01] VITALS: Ht 185.4 cm; Wt 79.6 kg
[~2022-07-01 13:30] MED LIST changes: +ATOR80TA PO; +CLOP75TA28 PO; +LOSA-69 PO
[2022-07-01] MEDS ORDERED: ACETAMINOPHEN 500 MG TAB PO ONE (14:45)
[2022-07-01 15:02] LABS: Basophils # (auto) 0.1 10 ^3/uL (0-0.2); Basophils % (auto) 0.8 % (0.0-2.0); Eosinophils # (auto) 0.1 10 ^3/uL (0-0.8); Eosinophils % (auto) 1.3 % (0.0-7.0); Hematocrit 38.7 % (41.0-53.0); Hemoglobin 13.2 g/dL (13.5-17.5); Lymphocytes # (auto) 2.2 10 ^3/uL (0.4-5.4); Lymphocytes % (auto) 26.4 % (10.0-50.0); Mean Corpuscular Hemoglobin 28.7 pg (28.0-32.0); Mean Corpuscular Volume 84.6 fL (80.0-100.0); Monocytes # (auto) 0.8 10 ^3/uL (0-1.3); Monocytes % (auto) 9.5 % (0.0-12.0); Neutrophils # (auto) 5.1 10 ^3/uL (1.6-8.6); Nucleated Red Blood Cells % 0.1 %; Red Blood Cells 4.58 10^6/uL (4.5-5.90); Red Cell Distribution Width 13.9 % (11.8-14.3); White Blood Cell 8.2 10^3/uL (4.4-10.8)
[2022-07-01 15:19] LABS: Albumin 3.3 g/dL (3.4-5.0); Calcium 8.9 mg/dL (8.5-10.1); Potassium 4.1 mmol/L (3.5-5.1)
[2022-07-01 15:28] LABS: BUN/Creatinine Ratio 8.3 (10.0-20.0); Bilirubin, Total 0.4 mg/dL (0.2-1.0); Total Protein 6.9 g/dL (6.4-8.2)
[2022-07-02 02:21] LABS: Urine Bacteria NONE SEEN /hpf (None Seen); Urine Blood Negative /uL (Negative); Urine Specific Gravity 1.015 (1.001-1.035); Urine WBC 420 /hpf (0 - 3); Urine WBC Clumps PRESENT /hpf (None Seen)
[2022-07-02] MEDS ORDERED: cefTRIAXone 1GM/50ML D5W 50 ML IV ONE (03:15)
[2022-07-02 12:54] LABS: Basophils # (auto) 0.1 10 ^3/uL (0-0.2); Basophils % (auto) 0.8 % (0.0-2.0); Eosinophils # (auto) 0.1 10 ^3/uL (0-0.8); Eosinophils % (auto) 1.6 % (0.0-7.0); Hematocrit 38.2 % (41.0-53.0); Hemoglobin 12.9 g/dL (13.5-17.5); Lymphocytes # (auto) 1.5 10 ^3/uL (0.4-5.4); Lymphocytes % (auto) 19.7 % (10.0-50.0); Mean Corpuscular Hemoglobin 28.8 pg (28.0-32.0); Mean Corpuscular Hgb Conc. 33.8 g/dL (32.0-36.0); Mean Corpuscular Volume 85.1 fL (80.0-100.0); Monocytes # (auto) 0.6 10 ^3/uL (0-1.3); Monocytes % (auto) 7.6 % (0.0-12.0); Neutrophils # (auto) 5.5 10 ^3/uL (1.6-8.6); Neutrophils % (auto) 70.3 % (37.0-80.0); Nucleated Red Blood Cells % 0.1 %; Red Blood Cells 4.49 10^6/uL (4.5-5.90); Red Cell Distribution Width 13.8 % (11.8-14.3); White Blood Cell 7.8 10^3/uL (4.4-10.8)
[2022-07-02 13:10] LABS: Calcium 8.8 mg/dL (8.5-10.1); Potassium 3.9 mmol/L (3.5-5.1)
[2022-07-02 13:14] LABS: BUN/Creatinine Ratio 9.3 (10.0-20.0); Bilirubin, Total 0.4 mg/dL (0.2-1.0)
[2022-07-02] MEDS ORDERED: ONDANSETRON HCL 4 MG/2 ML VIAL IV PRN (13:45)
[2022-07-02] MEDS ORDERED: MORPHINE SULFATE INJ 2 MG/ml SYRG IV PRN (13:45)
[2022-07-02] MEDS ORDERED: NITROGLYCERIN 0.4 MG SL TAB SL PRN (13:45)
[2022-07-02] MEDS ORDERED: ACETAMINOPHEN 325 MG TAB PO PRN (13:45)
[2022-07-02] MEDS ORDERED: DOCUSATE SOD 100 MG CAP PO PRN (13:45)
[2022-07-02] MEDS ORDERED: SODIUM CHLORIDE 0.9% 500 ML IV ONE (13:45)
[2022-07-02] MEDS: SODIUM CHLORIDE 0.9% 1,000 ML IV SCH (13:45)
[2022-07-02] MEDS ORDERED: TAMSULOSIN HYDROCHLORIDE 0.4 MG CAP PO ONE (14:00)
[2022-07-02] MEDS: ATORVASTATIN 20 MG TAB PO SCH (22:00)
[2022-07-02 23:00] VITALS: BP 137/87
[2022-07-03 05:00] VITALS: BP 146/92
[2022-07-03] MEDS: SODIUM CHLORIDE 0.9% 1,000 ML IV SCH ×2 (06:22→23:05)
[2022-07-03 08:42] VITALS: BP 132/82
[2022-07-03] MEDS: TAMSULOSIN HYDROCHLORIDE 0.4 MG CAP PO SCH (09:29)
[2022-07-03] MEDS: cefTRIAXone 1GM/50ML D5W 50 ML IV SCH (09:29)
[2022-07-03] MEDS: PANTOPRAZOLE 40 MG/10 ML VIAL INJ IV SCH (09:29)
[2022-07-03] MEDS: LOSARTAN POTASSIUM 50 MG TAB PO SCH (09:30)
[2022-07-03] MEDS: CLOPIDOGREL BISULFATE 75 MG TAB PO SCH (09:39)
[2022-07-03] MEDS ORDERED: LIDOCAINE 2% JELLY 11ml (GLYDO) UR ONE (12:15)
[2022-07-03 12:55] VITALS: BP 149/61
[2022-07-03 14:15] LABS: Basophils # (auto) 0 10 ^3/uL (0-0.2); Basophils % (auto) 0.5 % (0.0-2.0); Eosinophils # (auto) 0.1 10 ^3/uL (0-0.8); Eosinophils % (auto) 1.2 % (0.0-7.0); Hemoglobin 12.6 g/dL (13.5-17.5); Lymphocytes # (auto) 1.3 10 ^3/uL (0.4-5.4); Lymphocytes % (auto) 16.6 % (10.0-50.0); Mean Corpuscular Hemoglobin 28.7 pg (28.0-32.0); Mean Corpuscular Hgb Conc. 34.2 g/dL (32.0-36.0); Mean Corpuscular Volume 83.8 fL (80.0-100.0); Monocytes # (auto) 0.6 10 ^3/uL (0-1.3); Monocytes % (auto) 7.3 % (0.0-12.0); Neutrophils # (auto) 6.1 10 ^3/uL (1.6-8.6); Neutrophils % (auto) 74.4 % (37.0-80.0); Red Blood Cells 4.41 10^6/uL (4.5-5.90); Red Cell Distribution Width 13.6 % (11.8-14.3); White Blood Cell 8.1 10^3/uL (4.4-10.8)
[2022-07-03 14:35] LABS: Albumin 3.1 g/dL (3.4-5.0); Calcium 8.6 mg/dL (8.5-10.1)
[2022-07-03 14:38] LABS: BUN/Creatinine Ratio 9.7 (10.0-20.0); Bilirubin, Total 0.4 mg/dL (0.2-1.0); Total Protein 6.9 g/dL (6.4-8.2)
[2022-07-03 16:27] LABS: Urine Bacteria NONE SEEN /hpf (None Seen); Urine Blood Negative /uL (Negative); Urine Specific Gravity 1.011 (1.001-1.035); Urine WBC 62 /hpf (0 - 3)
[2022-07-03 17:00] VITALS: BP 145/89
[2022-07-03] MEDS: ATORVASTATIN 20 MG TAB PO SCH (21:33)
[2022-07-03 22:00] VITALS: BP 145/99
[2022-07-04] MEDS: HYDROcodone-ACET 5/325MG TAB PO PRN ×2 (04:36→19:24)
[2022-07-04 05:00] VITALS: BP 156/93
[2022-07-04 09:04] VITALS: BP 190/109
[2022-07-04] MEDS: cefTRIAXone 1GM/50ML D5W 50 ML IV SCH (10:02)
[2022-07-04] MEDS: PANTOPRAZOLE 40 MG/10 ML VIAL INJ IV SCH (10:02)
[2022-07-04] MEDS: LOSARTAN POTASSIUM 50 MG TAB PO SCH (11:20)
[2022-07-04] MEDS: TAMSULOSIN HYDROCHLORIDE 0.4 MG CAP PO SCH (11:20)
[2022-07-04] MEDS: FINASTERIDE 5 MG TAB PO SCH (11:21)
[2022-07-04] MEDS: CLOPIDOGREL BISULFATE 75 MG TAB PO SCH (11:21)
[2022-07-04 12:35] VITALS: BP 153/78
[2022-07-04] MEDS: SODIUM CHLORIDE 0.9% 1,000 ML IV SCH (16:01)
[2022-07-04 16:30] VITALS: BP 149/76
[2022-07-04] MEDS: ATORVASTATIN 20 MG TAB PO SCH (21:41)
[2022-07-04 22:42] VITALS: BP 169/90
[2022-07-05] MEDS: HYDROcodone-ACET 5/325MG TAB PO PRN ×2 (06:04→21:54)
[2022-07-05] MEDS: LOSARTAN POTASSIUM 50 MG TAB PO SCH (06:07)
[2022-07-05 09:00] VITALS: BP 129/76
[2022-07-05] MEDS: CLOPIDOGREL BISULFATE 75 MG TAB PO SCH (09:09)
[2022-07-05] MEDS: TAMSULOSIN HYDROCHLORIDE 0.4 MG CAP PO SCH (09:09)
[2022-07-05] MEDS: FINASTERIDE 5 MG TAB PO SCH (09:09)
[2022-07-05] MEDS: cefTRIAXone 1GM/50ML D5W 50 ML IV SCH (11:08)
[2022-07-05] MEDS: PANTOPRAZOLE 40 MG/10 ML VIAL INJ IV SCH (11:09)
[2022-07-05 13:00] VITALS: BP 121/79
[2022-07-05 16:53] VITALS: BP 129/71
[2022-07-05 20:00] VITALS: BP 141/80
[2022-07-05] MEDS: ATORVASTATIN 20 MG TAB PO SCH (21:54)
[2022-07-05 22:00] VITALS: BP 141/80
[2022-07-06] MEDS: HYDROcodone-ACET 5/325MG TAB PO PRN (02:07)
[2022-07-06 05:00] VITALS: BP 122/66
[2022-07-06] MEDS: SODIUM CHLORIDE 0.9% 1,000 ML IV SCH ×2 (07:38→17:45)
[2022-07-06 09:00] VITALS: BP 160/89
[2022-07-06] MEDS: PANTOPRAZOLE 40 MG/10 ML VIAL INJ IV SCH (09:01)
[2022-07-06] MEDS: cefTRIAXone 1GM/50ML D5W 50 ML IV SCH (09:01)
[2022-07-06] MEDS: TAMSULOSIN HYDROCHLORIDE 0.4 MG CAP PO SCH (09:02)
[2022-07-06] MEDS: LOSARTAN POTASSIUM 50 MG TAB PO SCH (09:02)
[2022-07-06] MEDS: CLOPIDOGREL BISULFATE 75 MG TAB PO SCH (09:03)
[2022-07-06] MEDS: FINASTERIDE 5 MG TAB PO SCH (09:03)
[2022-07-06 13:00] VITALS: BP 134/80
[2022-07-06 17:00] VITALS: BP 167/89
[2022-07-06] MEDS: ATORVASTATIN 20 MG TAB PO SCH (21:53)
[2022-07-06 22:00] VITALS: BP 151/80
[2022-07-07 04:30] VITALS: BP 138/89
[2022-07-07 09:00] VITALS: BP 148/86
[2022-07-07] MEDS: cefTRIAXone 1GM/50ML D5W 50 ML IV SCH (09:15)
[2022-07-07] MEDS: TAMSULOSIN HYDROCHLORIDE 0.4 MG CAP PO SCH (09:32)
[2022-07-07] MEDS: PANTOPRAZOLE 40 MG/10 ML VIAL INJ IV SCH (09:32)
[2022-07-07] MEDS: LOSARTAN POTASSIUM 50 MG TAB PO SCH (09:32)
[2022-07-07] MEDS: FINASTERIDE 5 MG TAB PO SCH (09:32)
[2022-07-07] MEDS: CLOPIDOGREL BISULFATE 75 MG TAB PO SCH (09:32)
[2022-07-07] MEDS ORDERED: CIPR-173 PO (10:06)
[2022-07-07] MEDS ORDERED: TAM04C PO (10:11)
[2022-07-07] MEDS: SODIUM CHLORIDE 0.9% 1,000 ML IV SCH (10:52)
[2022-07-07 13:00] VITALS: BP 152/88
[2022-07-07 16:28] VITALS: BP 148/86
[2022-07-07] MEDS ORDERED: CIPROFLOXACIN HYDROCHLORIDE 250 MG TAB PO SCH (22:00)
== END 2022-07-07 17:50 | disposition home or self-care (01) | DRG 690 ==
LOC: EDBD 13:30 → ER 13:30 → TELE 07-02 13:50 → TELE-WESTW 07-02 22:56 → WEST WING 07-06 14:44
PROVIDERS: ADMIT Nurse Practitioner Family; ATTEND Family Medicine
DX: N39.0 Urinary tract infection, site not specified (principal); E78.00 Pure hypercholesterolemia, unspecified; F03.C0 Unspecified dementia, severe, without behavioral disturbance, psychotic disturbance, mood disturbance, and anxiety; Z20.822 Contact with and (suspected) exposure to COVID-19; I10 Essential (primary) hypertension; Z79.02 Long term (current) use of antithrombotics/antiplatelets; Z86.73 Personal history of transient ischemic attack (TIA), and cerebral infarction without residual deficits; Z95.0 Presence of cardiac pacemaker; N40.1 Benign prostatic hyperplasia with lower urinary tract symptoms
CPT/HCPCS: 36415; 74176; 80053; 81001; 83605; 83690; 84154; 84484; 85025; 87040; 87081; 87086; 87426; 93005; 96365; C9113; G0378; J0696

== ENCOUNTER 2023-01-09 14:33 | Inpatient (IN) | payer OTHER ==
[~2023-01-09] VITALS: Ht 180.3 cm; Wt 83.2 kg
[~2023-01-09 14:33] MED LIST changes: +CIPR-173 PO; -LOSA-69 PO; +LOSA50TA46 PO; +TAMS-35 PO
[2023-01-09 15:38] LABS: Alanine Aminotransferase 36 U/L (7-40); Albumin 3.6 g/dL (3.2-4.8); Alkaline Phosphatase 67 U/L (46-116); Anion Gap 8 (5-15); Aspartate Aminotransferase 171 U/L (13-40); BUN/Creatinine Ratio 12.6 (10.0-20.0); Bilirubin, Total 1.6 mg/dL (0.2-1.0); Blood Urea Nitrogen 21 mg/dL (9-23); Calcium 8.9 mg/dL (8.5-10.1); Carbon Dioxide 26 mmol/L (20-30); Chloride 106 mmol/L (98-107); Glucose 118 mg/dL (74-106); Potassium 4.1 mmol/L (3.5-5.1); Sodium 140 mmol/L (136-145); Total Protein 5.9 g/dL (5.7-8.2)
[2023-01-09 15:50] LABS: Basophils # (auto) 0 10 ^3/uL (0-0.2); Basophils % (auto) 0.1 % (0.0-2.0); Eosinophils # (auto) 0 10 ^3/uL (0-0.8); Hematocrit 35.5 % (41.0-53.0); Lymphocytes # (auto) 0.8 10 ^3/uL (0.4-5.4); Lymphocytes % (auto) 5.7 % (10.0-50.0); Mean Corpuscular Hemoglobin 28.5 pg (28.0-32.0); Mean Corpuscular Hgb Conc. 33.7 g/dL (32.0-36.0); Mean Corpuscular Volume 84.5 fL (80.0-100.0); Monocytes # (auto) 1.2 10 ^3/uL (0-1.3); Monocytes % (auto) 8.8 % (0.0-12.0); Neutrophils % (auto) 85.4 % (37.0-80.0); Nucleated Red Blood Cells % 0.1 %; Red Cell Distribution Width 15.7 % (11.8-14.3); White Blood Cell 14.1 10^3/uL (4.4-10.8)
[2023-01-09] MEDS ORDERED: SODIUM CHLORIDE 0.9% 500 ML IV ONE (17:15)
[2023-01-09] MEDS ORDERED: ASPirin 81 mg TAB PO ONE (17:15)
[2023-01-09] MEDS ORDERED: CLOPIDOGREL 300 MG TAB PO ONE (17:15)
[2023-01-09] MEDS ORDERED: ACETAMINOPHEN 325 MG TAB PO PRN (18:00)
[2023-01-09] MEDS ORDERED: NITROGLYCERIN 0.4 MG SL TAB SL PRN (18:00)
[2023-01-09] MEDS ORDERED: cefTRIAXone 1GM/50ML D5W 50 ML IV ONE (18:00)
[2023-01-09] MEDS ORDERED: HEPARIN SODIUM (PORCINE) 5000 UNITS/ML 1ML VIAL IV ONE (18:05)
[2023-01-09] MEDS: SODIUM CHLORIDE 0.9% 1,000 ML IV SCH (18:09)
[2023-01-09 18:23] LABS: INR 1.28 (0.9-1.15); Partial Thromboplastin Time 40.4 SEC (24.5-34.5); Prothrombin Time 13.2 sec (9.3-11.8)
[2023-01-09 18:31] LABS: Triglycerides 55 mg/dL (< 150)
[2023-01-09 18:32] LABS: LDL Cholesterol 74 mg/dL (< 100)
[2023-01-09 18:33] LABS: Cholesterol 127 mg/dL (< 200); HDL Cholesterol 40 mg/dL (40-59)
[2023-01-09 19:02] LABS: Basophils # (auto) 0 10 ^3/uL (0-0.2); Basophils % (auto) 0.1 % (0.0-2.0); Eosinophils # (auto) 0 10 ^3/uL (0-0.8); Hemoglobin 11.7 g/dL (13.5-17.5); Lymphocytes # (auto) 0.9 10 ^3/uL (0.4-5.4); Lymphocytes % (auto) 6.5 % (10.0-50.0); Mean Corpuscular Hemoglobin 28.1 pg (28.0-32.0); Mean Corpuscular Hgb Conc. 33.4 g/dL (32.0-36.0); Mean Corpuscular Volume 84.2 fL (80.0-100.0); Monocytes # (auto) 1.4 10 ^3/uL (0-1.3); Monocytes % (auto) 9.8 % (0.0-12.0); Neutrophils # (auto) 12.1 10 ^3/uL (1.6-8.6); Neutrophils % (auto) 83.6 % (37.0-80.0); Red Blood Cells 4.15 10^6/uL (4.5-5.90); Red Cell Distribution Width 15.5 % (11.8-14.3); White Blood Cell 14.5 10^3/uL (4.4-10.8)
[2023-01-09 19:20] VITALS: PULSE 75; RESP 16; O2SAT 93
[2023-01-09] MEDS: HEPARIN DRIP/D5W 100UNITS/ML 250 ML IV SCH (19:41)
[2023-01-09] MEDS: PHENYLEPHRINE IV 250 ML IV SCH (20:40)
[2023-01-10] VITALS (90 sets, daily range): BP systolic 72–114; BP diastolic 36–76; PULSE 68–112; RESP 13–26; TEMP 98.2–98.7; O2SAT 86–97
[2023-01-10 01:12] LABS: Urine Bacteria NONE SEEN /hpf (None Seen); Urine Blood TRACE /uL (Negative); Urine Clarity Clear (Clear); Urine Color Yellow (Yellow); Urine Hyaline Cast FEW /lpf (0 - 2); Urine Protein, UAD TRACE (Negative); Urine Specific Gravity 1.017 (1.001-1.035); Urine WBC 5 /hpf (0 - 3)
[2023-01-10] MEDS: PHENYLEPHRINE IV 250 ML IV SCH ×4 (02:41→09:22)
[2023-01-10] MEDS ORDERED: SODIUM CHLORIDE 0.9% 500 ML IV ONE ×2 (03:00→10:30)
[2023-01-10] MEDS ORDERED: SERT-206 PO (03:48)
[2023-01-10] MEDS: SODIUM CHLORIDE 0.9% 1,000 ML IV SCH ×4 (06:48→23:22)
[2023-01-10 08:23] LABS: Basophils # (auto) 0 10 ^3/uL (0-0.2); Basophils % (auto) 0.2 % (0.0-2.0); Eosinophils # (auto) 0 10 ^3/uL (0-0.8); Hematocrit 38.8 % (41.0-53.0); Hemoglobin 12.7 g/dL (13.5-17.5); Lymphocytes # (auto) 0.9 10 ^3/uL (0.4-5.4); Lymphocytes % (auto) 4.9 % (10.0-50.0); Mean Corpuscular Hemoglobin 28.2 pg (28.0-32.0); Mean Corpuscular Hgb Conc. 32.8 g/dL (32.0-36.0); Mean Corpuscular Volume 86.2 fL (80.0-100.0); Monocytes # (auto) 1.4 10 ^3/uL (0-1.3); Monocytes % (auto) 7.5 % (0.0-12.0); Neutrophils # (auto) 15.9 10 ^3/uL (1.6-8.6); Neutrophils % (auto) 87.4 % (37.0-80.0); Red Cell Distribution Width 16.2 % (11.8-14.3); White Blood Cell 18.2 10^3/uL (4.4-10.8)
[2023-01-10] MEDS: cefTRIAXone 1GM/50ML D5W 50 ML IV SCH (08:29)
[2023-01-10 08:38] LABS: INR 1.18 (0.9-1.15); Partial Thromboplastin Time 34.7 SEC (24.5-34.5); Prothrombin Time 12.3 sec (9.3-11.8)
[2023-01-10 08:54] LABS: Alanine Aminotransferase 30 U/L (7-40); Albumin 3.4 g/dL (3.2-4.8); Alkaline Phosphatase 67 U/L (46-116); Anion Gap 11 (5-15); Aspartate Aminotransferase 126 U/L (13-40); BUN/Creatinine Ratio 13.7 (10.0-20.0); Bilirubin, Total 0.7 mg/dL (0.2-1.0); Blood Urea Nitrogen 19 mg/dL (9-23); Carbon Dioxide 19 mmol/L (20-30); Chloride 112 mmol/L (98-107); Glucose 115 mg/dL (74-106); Potassium 3.9 mmol/L (3.5-5.1); Sodium 142 mmol/L (136-145); Total Protein 5.9 g/dL (5.7-8.2)
[2023-01-10] MEDS: AMIODARONE HCL 200 MG TAB PO SCH (09:21)
[2023-01-10] MEDS: ASPirin 81 mg TAB PO SCH (09:21)
[2023-01-10] MEDS: NOREPINEPHRINE 8 MG/250ML KIT 250 ML IV SCH (09:30)
[2023-01-10] MEDS ORDERED: ASPirin 81 mg TAB PO SCH (10:00)
[2023-01-10] MEDS ORDERED: DOPamine 1600MCG/ML D5W 250 ML IV SCH (10:30)
[2023-01-10] MEDS ORDERED: LIDOCAINE 1% (LOCAL ANESTH.) PF 5ml SDV ID ONE (11:30)
[2023-01-10] MEDS: DOPamine 1600MCG/ML D5W 250 ML IV SCH ×2 (12:45→20:33)
[2023-01-10] MEDS ORDERED: ONDANSETRON HCL 4 MG/2 ML VIAL IV PRN (13:30)
[2023-01-10] MEDS: EPINEPHrine HCL 250 ML IV SCH (14:05)
[2023-01-10] MEDS: PHENYLEPHRINE INJ 80 MG in SODIUM CHL 0.9% 242 ML IV SCH ×2 (15:19→23:21)
[2023-01-10] MEDS: MORPHINE SULFATE INJ 2 MG/ml SYRG IV PRN ×2 (16:02→17:53)
[2023-01-10 16:19] LABS: INR 1.16 (0.9-1.15); Partial Thromboplastin Time 59.1 SEC (24.5-34.5); Prothrombin Time 12.1 sec (9.3-11.8)
[2023-01-10] MEDS ORDERED: BUMETANIDE 2.5mg/10ml (0.25 mg/ml) INJ IV ONE (16:30)
[2023-01-10] MEDS: HEPARIN DRIP/D5W 100UNITS/ML 250 ML IV SCH ×2 (17:15→23:20)
[2023-01-10] MEDS: SODIUM CHLOR 0.9% PF (SALINE LOCK) 10ML VIAL/SYR IV SCH (21:41)
[2023-01-10] MEDS: ATORVASTATIN 20 MG TAB PO SCH (21:41)
[2023-01-10 22:35] LABS: INR 1.27 (0.9-1.15); Prothrombin Time 13.1 sec (9.3-11.8)
[2023-01-10 22:49] LABS: Partial Thromboplastin Time 85.7 SEC (24.5-34.5)
[2023-01-11] VITALS (96 sets, daily range): BP systolic 78–122; BP diastolic 44–76; PULSE 86–115; RESP 13–25; TEMP 98.3–99.3; O2SAT 90–100
[2023-01-11] MEDS: NOREPINEPHRINE 8 MG/250ML KIT 250 ML IV SCH (01:55)
[2023-01-11] MEDS: DOPamine 1600MCG/ML D5W 250 ML IV SCH ×2 (04:51→16:37)
[2023-01-11 06:32] LABS: Basophils # (auto) 0 10 ^3/uL (0-0.2); Basophils % (auto) 0.1 % (0.0-2.0); Eosinophils # (auto) 0 10 ^3/uL (0-0.8); Hemoglobin 9.8 g/dL (13.5-17.5); Lymphocytes # (auto) 0.7 10 ^3/uL (0.4-5.4); Lymphocytes % (auto) 6.8 % (10.0-50.0); Mean Corpuscular Hemoglobin 28.7 pg (28.0-32.0); Mean Corpuscular Hgb Conc. 33.9 g/dL (32.0-36.0); Mean Corpuscular Volume 84.7 fL (80.0-100.0); Monocytes # (auto) 0.9 10 ^3/uL (0-1.3); Monocytes % (auto) 9.1 % (0.0-12.0); Neutrophils # (auto) 8.3 10 ^3/uL (1.6-8.6); Nucleated Red Blood Cells % 0.1 %; Red Blood Cells 3.43 10^6/uL (4.5-5.90); Red Cell Distribution Width 15.8 % (11.8-14.3); White Blood Cell 9.9 10^3/uL (4.4-10.8)
[2023-01-11 06:40] LABS: Chloride 113 mmol/L (98-107); INR 1.23 (0.9-1.15); Partial Thromboplastin Time 61.6 SEC (24.5-34.5); Prothrombin Time 12.7 sec (9.3-11.8); Sodium 140 mmol/L (136-145)
[2023-01-11 06:41] LABS: Anion Gap 10 (5-15); Calcium 6.2 mg/dL (8.5-10.1); Carbon Dioxide 17 mmol/L (20-30)
[2023-01-11 06:46] LABS: BUN/Creatinine Ratio 10.9 (10.0-20.0); Blood Urea Nitrogen 14 mg/dL (9-23)
[2023-01-11 06:49] LABS: Glucose 279 mg/dL (74-106)
[2023-01-11 06:50] LABS: Potassium 2.6 mmol/L (3.5-5.1)
[2023-01-11] MEDS ORDERED: POTASSIUM CHLORIDE 40 MEQ, LIDOCAINE 1% (LOCAL ANESTH.) 4 ML in SODIUM CHL 0.9% 250 ML IV ONE (07:15)
[2023-01-11] MEDS: EPINEPHrine HCL 250 ML IV SCH (08:00)
[2023-01-11] MEDS: AMIODARONE HCL 200 MG TAB PO SCH (09:31)
[2023-01-11] MEDS: ASPirin 81 mg TAB PO SCH (09:31)
[2023-01-11] MEDS: CLOPIDOGREL BISULFATE 75 MG TAB PO SCH (09:32)
[2023-01-11] MEDS: FAMOTIDINE 20 MG TAB PO SCH (09:32)
[2023-01-11] MEDS: cefTRIAXone 1GM/50ML D5W 50 ML IV SCH ×2 (09:33→16:04)
[2023-01-11] MEDS ORDERED: PANTOPRAZOLE 40 MG TAB PO SCH (10:00)
[2023-01-11 12:47] LABS: INR 1.15 (0.9-1.15); Partial Thromboplastin Time 46.1 SEC (24.5-34.5)
[2023-01-11] MEDS ORDERED: POTASSIUM EFFERVESENT TAB 25 MEQ PO ONE (16:15)
[2023-01-11] MEDS: SODIUM CHLOR 0.9% PF (SALINE LOCK) 10ML VIAL/SYR IV SCH ×2 (16:43→20:33)
[2023-01-11] MEDS: SODIUM CHLORIDE 0.9% 1,000 ML IV SCH ×2 (16:44→20:22)
[2023-01-11] MEDS: Ensure HIGH Protein Chocolate 8oz Bottle PO SCH (18:54)
[2023-01-11 20:30] LABS: INR 1.16 (0.9-1.15); Partial Thromboplastin Time 62.5 SEC (24.5-34.5); Prothrombin Time 12.1 sec (9.3-11.8)
[2023-01-11] MEDS: ATORVASTATIN 20 MG TAB PO SCH (20:33)
[2023-01-11] MEDS: HEPARIN DRIP/D5W 100UNITS/ML 250 ML IV SCH (20:45)
[2023-01-12] VITALS (103 sets, daily range): BP systolic 81–116; BP diastolic 45–76; PULSE 67–122; RESP 13–32; TEMP 97.8–98.8; O2SAT 80–96
[2023-01-12] MEDS: HEPARIN DRIP/D5W 100UNITS/ML 250 ML IV SCH (00:11)
[2023-01-12 02:12] LABS: INR 1.14 (0.9-1.15); Partial Thromboplastin Time 63.8 SEC (24.5-34.5); Prothrombin Time 11.9 sec (9.3-11.8)
[2023-01-12 04:10] LABS: Basophils # (auto) 0 10 ^3/uL (0-0.2); Basophils % (auto) 0.2 % (0.0-2.0); Eosinophils # (auto) 0 10 ^3/uL (0-0.8); Hematocrit 28.3 % (41.0-53.0); Hemoglobin 9.3 g/dL (13.5-17.5); Lymphocytes # (auto) 0.8 10 ^3/uL (0.4-5.4); Lymphocytes % (auto) 9.7 % (10.0-50.0); Mean Corpuscular Hemoglobin 28.2 pg (28.0-32.0); Mean Corpuscular Volume 85.4 fL (80.0-100.0); Monocytes # (auto) 0.7 10 ^3/uL (0-1.3); Monocytes % (auto) 9.3 % (0.0-12.0); Neutrophils # (auto) 6.3 10 ^3/uL (1.6-8.6); Neutrophils % (auto) 80.8 % (37.0-80.0); Nucleated Red Blood Cells % 0.1 %; Red Blood Cells 3.31 10^6/uL (4.5-5.90); Red Cell Distribution Width 15.8 % (11.8-14.3); White Blood Cell 7.8 10^3/uL (4.4-10.8)
[2023-01-12 04:19] LABS: Anion Gap 9 (5-15); Carbon Dioxide 18 mmol/L (20-30); Chloride 114 mmol/L (98-107); Potassium 3.2 mmol/L (3.5-5.1); Sodium 141 mmol/L (136-145)
[2023-01-12 04:21] LABS: Calcium 6.6 mg/dL (8.7-10.4)
[2023-01-12 04:26] LABS: BUN/Creatinine Ratio 11.3 (10.0-20.0); Blood Urea Nitrogen 13 mg/dL (9-23)
[2023-01-12 04:55] LABS: Glucose 225 mg/dL (74-106)
[2023-01-12] MEDS: DOPamine 1600MCG/ML D5W 250 ML IV SCH ×2 (05:37→19:20)
[2023-01-12] MEDS: SODIUM CHLORIDE 0.9% 1,000 ML IV SCH ×2 (06:18→16:57)
[2023-01-12] MEDS: SODIUM CHLOR 0.9% PF (SALINE LOCK) 10ML VIAL/SYR IV SCH ×2 (07:21→20:55)
[2023-01-12] MEDS: Ensure HIGH Protein Chocolate 8oz Bottle PO SCH ×3 (08:00→16:57)
[2023-01-12] MEDS: PHENYLEPHRINE INJ 80 MG in SODIUM CHL 0.9% 242 ML IV SCH (08:46)
[2023-01-12] MEDS: ASPirin 81 mg TAB PO SCH (08:53)
[2023-01-12] MEDS: FAMOTIDINE 20 MG TAB PO SCH (08:54)
[2023-01-12] MEDS: CLOPIDOGREL BISULFATE 75 MG TAB PO SCH (08:54)
[2023-01-12] MEDS: AMIODARONE HCL 200 MG TAB PO SCH (08:54)
[2023-01-12] MEDS: NOREPINEPHRINE 8 MG/250ML KIT 250 ML IV SCH (09:30)
[2023-01-12] MEDS: EPINEPHrine HCL 250 ML IV SCH (09:34)
[2023-01-12] MEDS: cefTRIAXone 1GM/50ML D5W 50 ML IV SCH (09:39)
[2023-01-12] MEDS: POTASSIUM CHL 20MEQ/100ML 100 ML IV SCH ×2 (10:04→11:47)
[2023-01-12] MEDS: LACTULOSE 20Gm/30ML SOLN PO SCH ×2 (14:04→23:03)
[2023-01-12] MEDS: ATORVASTATIN 20 MG TAB PO SCH (20:55)
[2023-01-13] VITALS (92 sets, daily range): BP systolic 81–122; BP diastolic 45–75; PULSE 65–103; RESP 13–26; TEMP 98.2–98.9; O2SAT 78–100
[2023-01-13] MEDS: SODIUM CHLORIDE 0.9% 1,000 ML IV SCH ×2 (01:55→07:30)
[2023-01-13 04:24] LABS: Basophils # (auto) 0 10 ^3/uL (0-0.2); Basophils % (auto) 0.2 % (0.0-2.0); Eosinophils # (auto) 0 10 ^3/uL (0-0.8); Eosinophils % (auto) 0.2 % (0.0-7.0); Hematocrit 32.8 % (41.0-53.0); Hemoglobin 10.9 g/dL (13.5-17.5); Lymphocytes # (auto) 0.9 10 ^3/uL (0.4-5.4); Mean Corpuscular Hgb Conc. 33.3 g/dL (32.0-36.0); Mean Corpuscular Volume 83.9 fL (80.0-100.0); Monocytes # (auto) 0.6 10 ^3/uL (0-1.3); Monocytes % (auto) 8.3 % (0.0-12.0); Neutrophils % (auto) 79.3 % (37.0-80.0); Nucleated Red Blood Cells % 0.1 %; Red Blood Cells 3.91 10^6/uL (4.5-5.90); Red Cell Distribution Width 16.1 % (11.8-14.3); White Blood Cell 7.6 10^3/uL (4.4-10.8)
[2023-01-13 04:42] LABS: Anion Gap 8 (5-15); Carbon Dioxide 21 mmol/L (20-30); Chloride 112 mmol/L (98-107); Sodium 141 mmol/L (136-145)
[2023-01-13 04:44] LABS: Calcium 8.2 mg/dL (8.7-10.4)
[2023-01-13 04:48] LABS: BUN/Creatinine Ratio 11.9 (10.0-20.0); Blood Urea Nitrogen 14 mg/dL (9-23); Glucose 87 mg/dL (74-106)
[2023-01-13] MEDS: LACTULOSE 20Gm/30ML SOLN PO SCH ×2 (05:08→07:09)
[2023-01-13] MEDS: NOREPINEPHRINE 8 MG/250ML KIT 250 ML IV SCH (07:09)
[2023-01-13] MEDS: EPINEPHrine HCL 250 ML IV SCH (07:09)
[2023-01-13] MEDS: PHENYLEPHRINE INJ 80 MG in SODIUM CHL 0.9% 242 ML IV SCH (07:09)
[2023-01-13] MEDS: SODIUM CHLOR 0.9% PF (SALINE LOCK) 10ML VIAL/SYR IV SCH ×2 (07:09→21:13)
[2023-01-13] MEDS: Ensure HIGH Protein Chocolate 8oz Bottle PO SCH ×3 (08:24→18:28)
[2023-01-13] MEDS: ASPirin 81 mg TAB PO SCH (08:32)
[2023-01-13] MEDS: CLOPIDOGREL BISULFATE 75 MG TAB PO SCH (08:32)
[2023-01-13] MEDS: AMIODARONE HCL 200 MG TAB PO SCH (08:32)
[2023-01-13] MEDS: cefTRIAXone 1GM/50ML D5W 50 ML IV SCH (08:32)
[2023-01-13] MEDS: FAMOTIDINE 20 MG TAB PO SCH (08:33)
[2023-01-13] MEDS: FUROSEMIDE 20 MG TAB PO SCH (08:34)
[2023-01-13] MEDS: ATORVASTATIN 20 MG TAB PO SCH (21:13)
[2023-01-14] VITALS (63 sets, daily range): BP systolic 89–117; BP diastolic 51–89; PULSE 62–98; RESP 12–26; TEMP 97.6–98.6; O2SAT 85–100
[2023-01-14] MEDS: DOPamine 1600MCG/ML D5W 250 ML IV SCH ×2 (02:30→18:22)
[2023-01-14] MEDS: SODIUM CHLORIDE 0.9% 1,000 ML IV SCH ×2 (05:51→23:30)
[2023-01-14] MEDS: CLOPIDOGREL BISULFATE 75 MG TAB PO SCH (08:48)
[2023-01-14] MEDS: FAMOTIDINE 20 MG TAB PO SCH (08:48)
[2023-01-14] MEDS: ASPirin 81 mg TAB PO SCH (08:48)
[2023-01-14] MEDS: AMIODARONE HCL 200 MG TAB PO SCH (08:49)
[2023-01-14] MEDS: Ensure HIGH Protein Chocolate 8oz Bottle PO SCH ×3 (08:49→18:22)
[2023-01-14] MEDS: FUROSEMIDE 20 MG TAB PO SCH (08:49)
[2023-01-14] MEDS: cefTRIAXone 1GM/50ML D5W 50 ML IV SCH (08:49)
[2023-01-14] MEDS: SODIUM CHLOR 0.9% PF (SALINE LOCK) 10ML VIAL/SYR IV SCH ×2 (08:50→21:31)
[2023-01-14] MEDS: EPINEPHrine HCL 250 ML IV SCH (12:18)
[2023-01-14] MEDS: ATORVASTATIN 20 MG TAB PO SCH (21:30)
[2023-01-15] VITALS (32 sets, daily range): BP systolic 86–110; BP diastolic 52–75; PULSE 65–104; RESP 11–34; TEMP 98–98.6; O2SAT 93–99
[2023-01-15] MEDS: cefTRIAXone 1GM/50ML D5W 50 ML IV SCH (09:15)
[2023-01-15] MEDS: CLOPIDOGREL BISULFATE 75 MG TAB PO SCH (09:16)
[2023-01-15] MEDS: SODIUM CHLOR 0.9% PF (SALINE LOCK) 10ML VIAL/SYR IV SCH ×2 (09:16→21:30)
[2023-01-15] MEDS: ASPirin 81 mg TAB PO SCH (09:16)
[2023-01-15] MEDS: FUROSEMIDE 20 MG TAB PO SCH (09:17)
[2023-01-15] MEDS: FAMOTIDINE 20 MG TAB PO SCH (09:18)
[2023-01-15] MEDS: AMIODARONE HCL 200 MG TAB PO SCH (09:18)
[2023-01-15] MEDS: Ensure HIGH Protein Chocolate 8oz Bottle PO SCH ×3 (09:19→16:57)
[2023-01-15] MEDS: DOPamine 1600MCG/ML D5W 250 ML IV SCH (12:48)
[2023-01-15] MEDS: EPINEPHrine HCL 250 ML IV SCH (14:00)
[2023-01-15] MEDS ORDERED: FUROSEMIDE 100 MG/10ML VIAL IV ONE (14:15)
[2023-01-15] MEDS: SODIUM CHLORIDE 0.9% 1,000 ML IV SCH ×2 (19:30→21:30)
[2023-01-15] MEDS: ATORVASTATIN 20 MG TAB PO SCH (21:30)
[2023-01-16] VITALS (23 sets, daily range): BP systolic 94–120; BP diastolic 57–78; PULSE 65–102; RESP 11–20; TEMP 98–99; O2SAT 92–99
[2023-01-16] MEDS: DOPamine 1600MCG/ML D5W 250 ML IV SCH (05:57)
[2023-01-16] MEDS ORDERED: ASPI-325 PO (09:08)
[2023-01-16] MEDS ORDERED: CLOP75TA70 PO (09:08)
[2023-01-16] MEDS ORDERED: FAMO-12 PO (09:08)
[2023-01-16] MEDS ORDERED: POTA8TAB38 PO (09:08)
[2023-01-16] MEDS ORDERED: ATOR40TA52 PO (09:08)
[2023-01-16] MEDS ORDERED: POTASSIUM EFFERVESENT TAB 25 MEQ PO ONE (09:15)
[2023-01-16] MEDS: ASPirin 81 mg TAB PO SCH (10:08)
[2023-01-16] MEDS: Ensure HIGH Protein Chocolate 8oz Bottle PO SCH ×3 (10:08→18:00)
[2023-01-16] MEDS: cefTRIAXone 1GM/50ML D5W 50 ML IV SCH (10:08)
[2023-01-16] MEDS: SODIUM CHLOR 0.9% PF (SALINE LOCK) 10ML VIAL/SYR IV SCH (10:08)
[2023-01-16] MEDS: FUROSEMIDE 20 MG TAB PO SCH (10:09)
[2023-01-16] MEDS: AMIODARONE HCL 200 MG TAB PO SCH (10:09)
[2023-01-16] MEDS: FAMOTIDINE 20 MG TAB PO SCH (10:09)
[2023-01-16] MEDS: CLOPIDOGREL BISULFATE 75 MG TAB PO SCH (10:09)
[2023-01-16] MEDS: EPINEPHrine HCL 250 ML IV SCH (14:00)
== END 2023-01-16 19:20 | disposition hospice, home (50) | DRG 280 ==
LOC: EDBD 14:33 → ER 14:33 → TELE 17:54 → ICU WEST 01-10 01:09
PROVIDERS: ADMIT Nurse Practitioner Family; ATTEND Nurse Practitioner Acute Care
PROC: 02HV33Z Insertion of Infusion Device into Superior Vena Cava, Percutaneous Approach (ICD-10-PCS; principal; 2023-01-10)
PROC: B548ZZA Ultrasonography of Superior Vena Cava, Guidance (ICD-10-PCS; 2023-01-10)
DX: I21.3 ST elevation (STEMI) myocardial infarction of unspecified site (principal); J96.01 Acute respiratory failure with hypoxia; N17.0 Acute kidney failure with tubular necrosis; R57.0 Cardiogenic shock; I48.20 Chronic atrial fibrillation, unspecified; J81.1 Chronic pulmonary edema; R65.10 Systemic inflammatory response syndrome (SIRS) of non-infectious origin without acute organ dysfunction; F03.90 Unspecified dementia, unspecified severity, without behavioral disturbance, psychotic disturbance, mood disturbance, and anxiety; Z66 Do not resuscitate; N18.9 Chronic kidney disease, unspecified; N40.0 Benign prostatic hyperplasia without lower urinary tract symptoms; R31.9 Hematuria, unspecified; I27.20 Pulmonary hypertension, unspecified; I12.9 Hypertensive chronic kidney disease with stage 1 through stage 4 chronic kidney disease, or unspecified chronic kidney disease; Z86.73 Personal history of transient ischemic attack (TIA), and cerebral infarction without residual deficits; Z79.899 Other long term (current) drug therapy; Z79.02 Long term (current) use of antithrombotics/antiplatelets; Z95.0 Presence of cardiac pacemaker; Z51.5 Encounter for palliative care
CPT/HCPCS: 36415; 36569; 71045; 80048; 80053; 80061; 81001; 83036; 83880; 84443; 84484; 85025; 85610; 85730; 87040; 87081; 87086; 93005; 93306; 97163; G0378; J0171; J0696; J2001; J2405; J3480